=== PATIENT | male | born 1970 | race African-American/Black ===

== ENCOUNTER 2018-02-17 13:25 | Inpatient (IN) | payer SELFPAY ==
[2018-02-17 14:51] LABS: #Eosinphils 0.1 thou/uL (0.0-0.7); #Lymphocytes 0.9 thou/uL (1.20-3.40); #Monocytes 0.7 thou/uL (0.11-0.59); #Neutrophils 5.2 thou/uL (1.40-6.50); %Basophils 0.3 % (0.0-1.0); %Eosinophils 1.3 % (0.0-10.0); %Lymphocytes 12.7 % (21.0-51.0); %Neutrophils 75.7 % (42.0-75.0); Hemoglobin 13.1 g/dL (14.0-18.0); Mean Corpuscular HGB CONC 33.6 g/dL (32.0-36.0); Mean Corpuscular Volume 95.1 fl (80.0-94.0); Mean Platelet Volume 6.9 fL (7.4-10.4); Platelet Count 295 thou/uL (130-400); RBC Distribution Width 11.8 % (11.5-14.5); Red Blood Cell (RBC) Count 4.09 mill/uL (4.70-6.10); White Blood Cell (WBC) Count 6.8 thou/uL (4.8-10.8)
[2018-02-17 15:19] LABS: Alcohol Less than 10 mg/dL (Less than 10); Salicylate Less than 8.0 mg/dL (15.0-30.0)
[2018-02-17 15:19] LABS: ALT (SGPT) 16 U/L (8-55); AST (SGOT) 25 U/L (5-34); Albumin 3.6 g/dL (3.5-5.0); Alkaline Phosphatase 81 U/L (40-150); Anion Gap 11 mmol/L (10-20); BUN (Urea Nitrogen) 11 mg/dL (8.9-20.6); Bilirubin, Total 0.5 mg/dL (0.2-1.2); CK (CPK) 1419 U/L (30-200); Calc. Creatinine Clearance 0 mL/min (70-130); Calcium 8.3 mg/dL (7.8-10.44); Carbon Dioxide 21 mmol/L (22-29); Chloride 110 mmol/L (98-107); Estimated GFR-MDRD 74; Globulin 1.9 g/dL (2.4-3.5); Glucose 115 mg/dL (70-105); Potassium 4.1 mmol/L (3.5-5.1); Protein, Total 5.5 g/dL (6.0-8.3); Sodium 138 mmol/L (136-145)
[2018-02-17] MEDS ORDERED: Adacel (T-DAP) 0.5 ML VIAL ONE (15:39)
[2018-02-17 16:28] LABS: Bilirubin Small (Negative); Blood, Urine Negative (Negative); Clarity CLOUDY (Clear); Glucose, Urine (Dipstick) Negative (Negative); Leukocyte Negative (Negative); Nitrite Negative (Negative); Protein, Urine (Dipstick) 300 mg/dL (Neg-Trace); Specific Gravity, Urine 1.029 (1.002-1.036)
[2018-02-17 16:31] LABS: RBC/HPF 0-3 HPF (0-3)
[2018-02-17 16:39] LABS: Amphetamine Not Detected (NotDetected); Barbiturates Screen Not Detected (NotDetected); Benzodiazepine Screen Not Detected (NotDetected); Cocaine Metabolite Screen Detected (NotDetected); Medtox Control Line Valid? VALID (VALID); Medtox Reader # READER 4; Methadone Not Detected (NotDetected); Methamphetamine Not Detected (NotDetected); Opiate Screen Not Detected (NotDetected); Oxycodone Screen Not Detected (NotDetected); Pathc Cast-AUWi Flag 6.97 (0-2.49); Phencyclidine (PCP) Not Detected (NotDetected); THC/Cannabinoid Screen Detected (NotDetected); Tricyclic Screen Not Detected (NotDetected)
[2018-02-17 16:40] LABS: Hyaline Casts/LPF 0-3 HYALINE CAST LPF (0-3 Hyaline); Renal Epithelial None Seen HPF (0-3); Transitional Epithelial NONE SEEN HPF (0-3)
[2018-02-17 16:53] LABS: Bacteria/HPF 1+ HPF (None Seen); Manual Microscopic Reviewed? No Path Casts Seen
[2018-02-17 17:18] LABS: Magnesium 1.8 mg/dL (1.6-2.6); Phosphorus 3.4 mg/dL (2.3-4.7)
[2018-02-17] MEDS ORDERED: Sodium Chloride 0.9% 10 ML ONE (18:39)
[2018-02-17] MEDS: Sodium Chloride 0.9% 1,000 ML IV SCH ×2 (18:43→23:31)
[2018-02-17 18:50] VITALS: BMI 25.7
[2018-02-17] MEDS ORDERED: Calcium Carbonate 500 MG ChewTAB PO PRN (19:53)
[2018-02-17] MEDS ORDERED: Senokot 8.6 MG TAB PO PRN (19:53)
[2018-02-17] MEDS ORDERED: Ondansetron HCl/PF 4 MG/2 ML Vial IVP PRN (19:53)
[2018-02-17] MEDS ORDERED: Acetaminophen 325 MG TAB PO PRN (19:53)
[2018-02-17] MEDS ORDERED: Ondansetron ODT 4 MG TAB PO PRN (19:53)
[2018-02-17] MEDS ORDERED: hydrALAZINE 20 MG/ML VIAL SLOW IVP PRN (19:55)
[2018-02-17] MEDS ORDERED: cloNIDine 0.1 MG TAB PO PRN (19:55)
[2018-02-17] MEDS ORDERED: Nitroglycerin 2% Ointment 1 INCH/1 GM Packet TOP PRN (19:55)
--- NOTE | 2018-02-17 21:03 | PDOC.PN ---
- Subjective Encounter Start Date: 02/17/18 Encounter Start Time: 11:30 Patient seen and examined. s - Objective Resuscitation Status: Resuscitation Status FULL:Full Resuscitation MAR Reviewed: Yes Vital Signs & Weight: Vital Signs (12 hours) Temp Pulse Resp BP Pulse Ox 02/17/18 18:00 98.2 F 76 16 132/86 100 02/17/18 17:50 98.2 F 76 14 100 Weight Weight 155 lb Result Diagrams: 02/17/18 13:47 02/18/18 04:33 EKG Reviewed by me: Yes (ST) Phys Exam - Physical Examination Constitutional: NAD (Somnolent) HEENT: PERRLA, sclera anicteric dry mucous memb Neck: no nodes, no JVD, supple Respiratory: no wheezing, no rales, no rhonchi, clear to auscultation bilateral Cardiovascular: RRR, no significant murmur, no rub tachycardic, No heaves/pulsations Gastrointestinal: soft, non-tender, no distention, positive bowel sounds Musculoskeletal: no edema Neurological: non-focal, normal sensation, moves all 4 limbs Power 5/5 in all ext Psychiatric: normal affect, A&O x 3 Deviation from normal: Somnolent Skin: no rash Dx/Plan - Plan * . Review of Systems - Review of Systems Other: Cannot be reliably obtained due to current mentation - Medications/Allergies Allergies/Adverse Reactions: Allergies Allergy/AdvReac Type Severity Reaction Status Date / Time No Known Allergies Allergy Unverified 02/17/18 17:24 Medications: Current Medications Acetaminophen (Tylenol) 650 mg PO Q4H PRN PRN Reason: Headache/Fever or Pain Calcium Carbonate (Tums) 1,000 mg PO Q4H PRN PRN Reason: Heartburn or Indigestion Clonidine (Catapres) 0.1 mg PO Q4H PRN PRN Reason: Systolic BP > 180/ DBP >100 Hydralazine HCl (Apresoline) 10 mg SLOW IVP Q4H PRN PRN Reason: SBP Greater Than 180 Sodium Chloride (Normal Saline 0.9%) 1,000 mls @ 200 mls/hr IV .Q5H CIPRIANO Last Admin: 02/17/18 18:43 Dose: 1,000 mls Nitroglycerin (Nitro-Bid 2% Ointment) 0.5 inch TOP Q8H PRN PRN Reason: SBP Greater Than 180 Ondansetron HCl (Zofran Odt) 4 mg PO Q6H PRN PRN Reason: Nausea/Vomiting Ondansetron HCl (Zofran) 4 mg IVP Q6H PRN PRN Reason: Nausea/Vomiting Senna (Senokot) 2 tab PO HSPRN PRN PRN Reason: Constipation
[2018-02-18] MEDS: Sodium Chloride 0.9% 1,000 ML IV SCH ×2 (04:43→09:50)
[2018-02-18 05:29] LABS: Anion Gap 6 mmol/L (10-20); BUN (Urea Nitrogen) 7 mg/dL (8.9-20.6); CK (CPK) 1124 U/L (30-200); Calc. Creatinine Clearance 116 mL/min (70-130); Calcium 8.1 mg/dL (7.8-10.44); Carbon Dioxide 22 mmol/L (22-29); Chloride 113 mmol/L (98-107); Estimated GFR-MDRD Greater than 90; Glucose 86 mg/dL (70-105); Potassium 3.8 mmol/L (3.5-5.1); Sodium 137 mmol/L (136-145)
--- NOTE | 2018-02-18 06:26 | HP ---
CHIEF COMPLAINT: Altered mentation. HISTORY OF PRESENT ILLNESS: The patient is a 48-year-old male who [place] station earlier today. He was brought in by EMS. He was not responding to verbal stimuli. At the time of my evalu ation, the patient is awake, somewhat somnolent. He denies any nausea, vomiting, headache, chest mary n, palpitations. He admitted drinking alcohol and "around people smoking something." In the emergency room, his workup was consistent with rhabdomyolysis with CK around 1500. His urine drug screen was positive for cannabinoid and cocaine. He received 2 liters of IV fluids with tetanus shot. PAST MEDICAL HISTORY/PAST SURGICAL HISTORY: Reviewed with the patient and none. ALLERGIES: No known drug allergies. CURRENT HOME MEDICATIONS: Reviewed with the patient and none. SOCIAL HISTORY: The patient drinks on a daily basis up to 2-3 drinks a day. He also abuses drugs. He has abused K2 in the past. He also smokes cigars. FAMILY HISTORY: Negative for premature coronary artery disease. REVIEW OF SYSTEMS: Review of systems cannot be reliably obtained from the patient due to current cog nitive status. PHYSICAL EXAMINATION/LABORATORY FINDINGS: Please refer to my progress note. IMPRESSION: 1. Drug overdose/toxic metabolic encephalopathy. 2. Rhabdomyolysis secondary to drug use. 3. Cocaine and cannabis abuse. 4. Ongoing tobacco abuse. 5. Dehydration. 6. Chronic alcoholism. 7. Chronic anemia. PLAN: The patient will be monitored on the telemetry unit due to ongoing cocaine abuse with altered mentation. We will start him on thiamine, folic acid, multivitamin with aggressive IV hydration. We will repeat CK in a.m. We will also monitor for alcohol withdrawal. The patient was extensively cou nseled for lifestyle modification. Fall precautions were emphasized. P.r.n. antihypertensives. Plan of care was discussed with the patient in detail, he stated understanding.
[2018-02-18 08:58] LABS: Troponin I Less than 0.010 ng/mL (< 0.028)
[2018-02-18] MEDS ORDERED: Multivit, Therapeutic 1 TAB PO SCH (09:00)
[2018-02-18] MEDS ORDERED: Folic Acid 1 MG TAB PO SCH (09:00)
[2018-02-18] MEDS ORDERED: Sodium Chloride 0.45% 1,000 ML IV SCH (09:30)
[2018-02-18 16:37] VITALS: BP 119/76; TEMP 98.8
--- NOTE | 2018-02-18 19:35 | DIS ---
DATE OF DISCHARGE: 02/18/2018 The patient signed against medical advice. BRIEF HOSPITAL COURSE: The patient is a 48-year-old male with polysubstance abuse, [place] un[place]. Please refer to the history and physical dated 02/17/2018 for further detail s. The patient was admitted to the hospital with a diagnosis of toxic metabolic encephalopathy along wit h rhabdomyolysis. His CK on admission was around 1400. After IV fluids, his CK improved to 1124 tod ay. His urine drug screen was positive for cocaine and cannabinoid. His mentation has significantly improved. The patient was advised to continue IV fluids overnight due to elevated CK. The patient signed against medical advice. He refused walking program. FINAL DIAGNOSES: 1. Toxic metabolic encephalopathy. 2. Drug overdose. 3. Rhabdomyolysis secondary to drug use. 4. Polysubstance abuse (cocaine, cannabis, and tobacco dependence). 5. Dehydration. 6. Chronic alcoholism. 7. Chronic anemia.
== END 2018-02-18 16:58 | disposition left against medical advice (07) | DRG 917 ==
LOC: ERS 13:25 → 2NO 15:59
PROVIDERS: ADMIT Internal Medicine; ATTEND Internal Medicine
PROC: 3E0234Z Introduction of Serum, Toxoid and Vaccine into Muscle, Percutaneous Approach (ICD-10-PCS; principal; 2018-02-17)
DX: T40.5X1A Poisoning by cocaine, accidental (unintentional), initial encounter (principal); G92 Toxic encephalopathy; M62.82 Rhabdomyolysis; T40.7X1A Poisoning by cannabis (derivatives), accidental (unintentional), initial encounter; F12.188 Cannabis abuse with other cannabis-induced disorder; F14.188 Cocaine abuse with other cocaine-induced disorder; F17.210 Nicotine dependence, cigarettes, uncomplicated; E86.0 Dehydration; D64.9 Anemia, unspecified; F10.20 Alcohol dependence, uncomplicated
CPT/HCPCS: 36415; 36416; 80048; 80053; 80306; 80307; 81003; 81015; 82550; 83735; 84100; 84484; 85025; 90471; 90715; 93005; 96360; A4216

== ENCOUNTER 2018-03-07 00:18 | Emergency (ER) | payer SELFPAY ==
[2018-03-07 01:00] LABS: #Eosinphils 0.2 thou/uL (0.0-0.7); #Lymphocytes 1.5 thou/uL (1.20-3.40); #Monocytes 0.4 thou/uL (0.11-0.59); #Neutrophils 2.3 thou/uL (1.40-6.50); %Basophils 0.6 % (0.0-1.0); %Eosinophils 4.7 % (0.0-10.0); %Lymphocytes 33.6 % (21.0-51.0); %Monocytes 9.4 % (0.0-10.0); %Neutrophils 51.7 % (42.0-75.0); Hemoglobin 12.9 g/dL (14.0-18.0); Mean Corpuscular HGB CONC 34.7 g/dL (32.0-36.0); Mean Corpuscular Hemoglobin 32.7 pg (27.0-31.0); Mean Corpuscular Volume 94.3 fl (80.0-94.0); Mean Platelet Volume 6.5 fL (7.4-10.4); Platelet Count 233 thou/uL (130-400); RBC Distribution Width 11.7 % (11.5-14.5); Red Blood Cell (RBC) Count 3.95 mill/uL (4.70-6.10); White Blood Cell (WBC) Count 4.5 thou/uL (4.8-10.8)
[2018-03-07 01:17] LABS: ALT (SGPT) 14 U/L (8-55); AST (SGOT) 15 U/L (5-34); Albumin 3.6 g/dL (3.5-5.0); Alkaline Phosphatase 80 U/L (40-150); Anion Gap 9 mmol/L (10-20); BUN (Urea Nitrogen) 16 mg/dL (8.9-20.6); Bilirubin, Total 0.6 mg/dL (0.2-1.2); Calc. Creatinine Clearance 0 mL/min (70-130); Calcium 8.3 mg/dL (7.8-10.44); Carbon Dioxide 22 mmol/L (22-29); Chloride 113 mmol/L (98-107); Estimated GFR-MDRD 81; Globulin 1.9 g/dL (2.4-3.5); Glucose 93 mg/dL (70-105); Potassium 3.9 mmol/L (3.5-5.1); Protein, Total 5.5 g/dL (6.0-8.3); Sodium 140 mmol/L (136-145)
== END 2018-03-07 04:13 | disposition home or self-care (01) ==
LOC: ERS 00:18
DX: I95.89 Other hypotension (principal); T50.905A Adverse effect of unspecified drugs, medicaments and biological substances, initial encounter; F17.290 Nicotine dependence, other tobacco product, uncomplicated; Z71.6 Tobacco abuse counseling
CPT/HCPCS: 36415; 80053; 85025; 96360; 99406

== ENCOUNTER 2018-03-26 14:53 | Emergency (ER) | payer SELFPAY ==
[2018-03-26 15:26] LABS: #Lymphocytes 0.8 thou/uL (1.20-3.40); #Monocytes 0.5 thou/uL (0.11-0.59); #Neutrophils 3.2 thou/uL (1.40-6.50); %Basophils 0.7 % (0.0-1.0); %Eosinophils 1.1 % (0.0-10.0); %Lymphocytes 17.4 % (21.0-51.0); %Neutrophils 69.7 % (42.0-75.0); Hemoglobin 13.2 g/dL (14.0-18.0); Mean Corpuscular HGB CONC 35.4 g/dL (32.0-36.0); Mean Corpuscular Hemoglobin 33.2 pg (27.0-31.0); Mean Corpuscular Volume 93.7 fl (80.0-94.0); Mean Platelet Volume 7.1 fL (7.4-10.4); Platelet Count 220 thou/uL (130-400); RBC Distribution Width 11.5 % (11.5-14.5); Red Blood Cell (RBC) Count 3.96 mill/uL (4.70-6.10); White Blood Cell (WBC) Count 4.5 thou/uL (4.8-10.8)
--- NOTE | 2018-03-26 15:32 | CT ---
CT BRAIN: Date: 03/26/18 HISTORY: Trauma. Patient was found by neighbor shaking. Patient is hypotensive. History of seizures. FINDINGS: Noncontrast enhanced CT images of brain obtained. The brain is unremarkable. No evidence of intracranial masses, hemorrhages, strokes, or contusions se en. Ventricles are of normal size. IMPRESSION: Normal CT brain. POS: [facility]
[2018-03-26 15:41] LABS: ALT (SGPT) 18 U/L (8-55); AST (SGOT) 19 U/L (5-34); Albumin 3.7 g/dL (3.5-5.0); Alkaline Phosphatase 73 U/L (40-150); Anion Gap 14 mmol/L (10-20); BUN (Urea Nitrogen) 20 mg/dL (8.9-20.6); Bilirubin, Total 1.1 mg/dL (0.2-1.2); CK (CPK) 403 U/L (30-200); Calc. Creatinine Clearance 0 mL/min (70-130); Calcium 8.6 mg/dL (7.8-10.44); Carbon Dioxide 17 mmol/L (22-29); Chloride 111 mmol/L (98-107); Estimated GFR-MDRD 65; Globulin 1.9 g/dL (2.4-3.5); Glucose 85 mg/dL (70-105); Potassium 4.5 mmol/L (3.5-5.1); Protein, Total 5.6 g/dL (6.0-8.3); Sodium 137 mmol/L (136-145)
[2018-03-26 15:45] LABS: Acetaminophen Less than 6.0 mcg/mL (10.0-30.0); Alcohol Less than 10 mg/dL (Less than 10); Salicylate Less than 8.0 mg/dL (15.0-30.0)
[2018-03-26 15:50] LABS: CKMB 3.6 ng/mL (0-6.6); Troponin I Less than 0.010 ng/mL (< 0.028)
--- NOTE | 2018-03-26 16:04 | RAD ---
CHEST 1 VIEW PORTABLE: Date: 03/26/18 HISTORY: 48-year-old male with history of vomiting. FINDINGS: AP view of chest obtained. The lungs are well aerated. No evidence of active intrathoracic disease se en. No evidence of effusions, pneumonia, or pneumothorax seen. IMPRESSION: Unremarkable AP view of chest. POS: [facility]
== END 2018-03-26 17:16 | disposition home or self-care (01) ==
LOC: ERS 14:53
DX: R55 Syncope and collapse (principal); F17.290 Nicotine dependence, other tobacco product, uncomplicated
CPT/HCPCS: 70450; 71045; 80053; 80307; 82553; 84484; 85025; 93005; 96360

== ENCOUNTER 2018-04-25 21:50 | Emergency (ER) | payer SELFPAY ==
[2018-04-25 22:54] LABS: #Eosinphils 0.2 thou/uL (0.0-0.7); #Lymphocytes 1.4 thou/uL (1.20-3.40); #Monocytes 0.5 thou/uL (0.11-0.59); #Neutrophils 2.5 thou/uL (1.40-6.50); %Basophils 0.5 % (0.0-1.0); %Eosinophils 3.4 % (0.0-10.0); %Lymphocytes 30.2 % (21.0-51.0); %Monocytes 10.4 % (0.0-10.0); %Neutrophils 55.5 % (42.0-75.0); Hemoglobin 12.8 g/dL (14.0-18.0); Mean Corpuscular HGB CONC 34.9 g/dL (32.0-36.0); Mean Corpuscular Hemoglobin 32.6 pg (27.0-31.0); Mean Corpuscular Volume 93.5 fL (78.0-98.0); Mean Platelet Volume 6.8 fL (7.4-10.4); Platelet Count 229 thou/uL (130-400); RBC Distribution Width 11.6 % (11.5-14.5); Red Blood Cell (RBC) Count 3.93 mill/uL (4.70-6.10); White Blood Cell (WBC) Count 4.5 thou/uL (4.8-10.8)
[2018-04-25 23:17] LABS: ALT (SGPT) 19 U/L (8-55); AST (SGOT) 16 U/L (5-34); Albumin 3.7 g/dL (3.5-5.0); Alkaline Phosphatase 88 U/L (40-150); Anion Gap 11 mmol/L (10-20); BUN (Urea Nitrogen) 11 mg/dL (8.9-20.6); Bilirubin, Total 0.5 mg/dL (0.2-1.2); CK (CPK) 354 U/L (30-200); Calc. Creatinine Clearance 0 mL/min (70-130); Calcium 9.1 mg/dL (7.8-10.44); Carbon Dioxide 23 mmol/L (22-29); Chloride 111 mmol/L (98-107); Estimated GFR-MDRD Greater than 90; Glucose 89 mg/dL (70-105); Potassium 4.1 mmol/L (3.5-5.1); Protein, Total 5.7 g/dL (6.0-8.3); Sodium 141 mmol/L (136-145)
== END 2018-04-25 23:58 | disposition home or self-care (01) ==
LOC: ERS 21:50
DX: F10.129 Alcohol abuse with intoxication, unspecified (principal); F12.129 Cannabis abuse with intoxication, unspecified; F17.290 Nicotine dependence, other tobacco product, uncomplicated
CPT/HCPCS: 36415; 80053; 82550; 85025; 99285